=== PATIENT | male | born 1960 | race Caucasian/White ===

== ENCOUNTER 2018-02-06 08:25 | Inpatient (IN) | payer OTHER, SELFPAY ==
[2018-01-29 13:49] VITALS: BMI 32.8
[2018-02-06] VITALS (16 sets, daily range): BP systolic 109–149; BP diastolic 62–107; PULSE 65–82; RESP 9–20; TEMP 36.1–36.7; O2SAT 94–99; BMI 32.8
--- NOTE | 2018-02-06 06:00 | DI.RAD.S_ITS ---
PROCEDURE: XR KNEE RT 1TO2V INDICATIONS: TOTAL RIGHT KNEE TECHNIQUE: 2 views of the knee acquired. COMPARISON: [facility] SAMANTHA Mcclain, XR BONE LENGTH SCANOGRAM, 12/07/2017, 14:44. [facility] SAMANTHA Moran, KNEE SERIES RT, 03/16/2015, 13:53. FINDINGS: Bones: Patient is status post knee joint arthroplasty. Hardware components are in expected positions. Visualized bony structures are intact. Soft tissues: Overlying postoperative changes are noted. IMPRESSION: 1. Expected postsurgical changes status post right knee arthroplasty. Dictated by: Jj Avila M.D. on 02/06/2018 at 13:52 Approved by: Jj Avila M.D. on 02/06/2018 at 13:52
[2018-02-06] MEDS: LACTATED RINGERS 1,000 ML 42 ML IV ×2 (08:45→11:08)
[2018-02-06] MEDS: VANCOMYCIN 1,000 MG/200 ML FROZ.PIGGY 200 MG IV (08:48)
[2018-02-06] MEDS: CELECOXIB 200 MG CAPSULE PO (08:55)
[2018-02-06] MEDS: PREGABALIN 75 MG CAPSULE PO (08:55)
[2018-02-06] MEDS: ACETAMINOPHEN 325 MG TABLET 975 MG PO ×2 (08:55→18:52)
--- NOTE | 2018-02-06 09:14 | PM.PREOP ---
Pre-operative Note Interval Note Pre-op Check: Yes History & Physical Reviewed by Physician and Yes Exam Performed Changes: No
--- NOTE | 2018-02-06 09:14 | PM.OP.1 ---
Operative Date/Time/Diagnoses Date of procedure: 02/06/18 Time of procedure: 09:32 Pre-op diagnosis: right total knee arthroplasty Post-op diagnosis: same Procedure & Clinicians Procedure: right total knee arthroplasty Same procedure as scheduled: Yes Indications: The patient has had progressively worsening right knee pain with radiographic changes consistent with arthritis. Non-operative management has failed and the patient has requested total knee replacement. The risks, benefits and alternatives to surgery were discussed with the patient prior to proceeding. Risks discussed included, but were not limited to, failure to relieve pain, stiffness, infection, nerve damage, deep venous thrombosis, pulmonary embolism, stroke, coma, heart attack, permanent paralysis and , as well as the potential need for eventual revision of the prosthetic. Surgeon: Maggie Guajardo Agriculture Teacher: Deepika Grigsby Click Yes if Unassisted: No Anesthesia Type: Spinal and Peripheral nerve block Operative Notes Findings: severe right knee osteoarthritis with multiple loose bodies with marked valgus deformity, adequate balance Closure Type: primary Specimen(s): none sent Implants & Drains: Guajardo and Nephew Dain BCS2 7 femur, tibia 5, polyethylene 10, 38 oval patella Applied: drain(s) and implant(s) Estimated Blood Loss (mL): 250 Blood products transfused: none Tourniquet time (min): 82 Procedure in detail: The patient was seen in the pre-operative area, where the patient identified the right knee as the operative site and this was marked with my initials. The patient received pre-operative antibiotics, and was taken to the operating room and placed on the operative table in the supine position. After satisfactory anesthesia, a attendant sales out was performed. The right leg was encircled with a tourniquet about the proximal thigh, and the leg was prepared from the toes to the tourniquet with ChloroPrep in the usual fashion and draped through sterile drapes. The leg was elevated and exsanguinated with Eschmark bandage and the tourniquet inflated to [250] mmHg pressure. The knee was approached through an approximately 18 cm incision centered over the patella and carried into the knee through a medial parapatellar arthrotomy. A portion of the medial and lateral meniscus was resected. Soft tissue was carefully mobilized around the patella the patella was measured with a caliper. Bone was resected from the patella and the patellar height was reconstituted with up an appropriate sized patellar component. A cover was then placed on the patella. A small amount of additional medial and lateral meniscus was resected. The visionare guide fit well to the distal femur. It looked like an appropriate distal femoral cut and the cut was made without difficulty. The rotation was assessed and the appropriate size femoral guide was placed on the distal femur and finishing cuts were made. There was no evidence of notching. The anterior, posterior and chamfer cuts were then made. The posterior osteophytes and soft tissues were then removed. The posterior capsule was injected with part of a mixture of 60 ml 0.25% Marcaine mixed with 20 ml Exparel for post operative pain control. The remainder of this mixture was injected into the capsule and subcutaneous tissues during cement curing. The tibia was prepared and the visionaire guide fit well to the distal tibia. The rotation was assessed. The patient was placed in extension residual medial and lateral meniscus as well as any residual bone was carefully resected. [No] additional tibia was resected. Hemostasis was achieved especially posteriorly. Additional local was injected into the posterior capsule. The extension gap was assessed and additional releases for gap balancing were performed as necessary. It was checked with the gap doubler operator. The femoral component was trial was placed and the notch was finished. Trial tibial and femoral components were then placed and the knee placed through a range of motion. Range of motion was [0-130], with good stability throughout the range. The trials were then removed, and the tibia was finished. The bone was prepared with pulsatile lavage, and dried with a sponge. Cement was applied and the final prosthetics placed. Excess cement was removed during and after cement curing. A brief Betadine soak was performed. After confirming there was no extruded cement posteriorly, the final tibial insert was placed. The knee was copiously irrigated and the tourniquet deflated. Hemostasis was obtained with the hemovac. A drain was placed and brought out superolaterally. The capsule was closed with interrupted # 1 polyester suture. The subcutaneous layer was closed with barbed sutures, and the skin with a running 3-0 V-Lock suture and Surgical glue. An Aquacel Ag dressing was applied and the patient was taken to recovery having tolerated the procedure well. Complications: none Condition: stable Disposition: same day surgery Plan for aftercare: The patient will be maintained on a standard total knee replacement protocol with weight bearing as tolerated. The patient will receive aspirin and sequential compression devices for DVT prophylaxis. 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 The patient will be discharged home when safe for the home environment.
--- NOTE | 2018-02-06 09:17 | P.OP_ITS ---
Operative Date/Time/Diagnoses Date of procedure: 02/06/18 Time of procedure: 09:32 Pre-op diagnosis: right total knee arthroplasty Post-op diagnosis: same Procedure & Clinicians Procedure: right total knee arthroplasty Same procedure as scheduled: Yes Indications: The patient has had progressively worsening right knee pain with radiographic changes consistent with arthritis. Non-operative management has failed and the patient has requested total knee replacement. The risks, benefits and alternatives to surgery were discussed with the patient prior to proceeding. Risks discussed included, but were not limited to, failure to relieve pain, stiffness, infection, nerve damage, deep venous thrombosis, pulmonary embolism, stroke, coma, heart attack, permanent paralysis and , as well as the potential need for eventual revision of the prosthetic. Surgeon: Maggie Guajardo Inspector Barrel: Deepika Grigsby Click Yes if Unassisted: No Anesthesia Type: Spinal and Peripheral nerve block Operative Notes Findings: severe right knee osteoarthritis with multiple loose bodies with marked valgus deformity, adequate balance Closure Type: primary Specimen(s): none sent Implants & Drains: Guajardo and Nephew Dain BCS2 7 femur, tibia 5, polyethylene 10, 38 oval patella Applied: drain(s) and implant(s) Estimated Blood Loss (mL): 250 Blood products transfused: none Tourniquet time (min): 82 Procedure in detail: The patient was seen in the pre-operative area, where the patient identified the right knee as the operative site and this was marked with my initials. The patient received pre-operative antibiotics, and was taken to the operating room and placed on the operative table in the supine position. After satisfactory anesthesia, a vinyl cutter out was performed. The right leg was encircled with a tourniquet about the proximal thigh, and the leg was prepared from the toes to the tourniquet with ChloroPrep in the usual fashion and draped through sterile drapes. The leg was elevated and exsanguinated with Eschmark bandage and the tourniquet inflated to [250] mmHg pressure. The knee was approached through an approximately 18 cm incision centered over the patella and carried into the knee through a medial parapatellar arthrotomy. A portion of the medial and lateral meniscus was resected. Soft tissue was carefully mobilized around the patella the patella was measured with a caliper. Bone was resected from the patella and the patellar height was reconstituted with up an appropriate sized patellar component. A cover was then placed on the patella. A small amount of additional medial and lateral meniscus was resected. The visionare guide fit well to the distal femur. It looked like an appropriate distal femoral cut and the cut was made without difficulty. The rotation was assessed and the appropriate size femoral guide was placed on the distal femur and finishing cuts were made. There was no evidence of notching. The anterior, posterior and chamfer cuts were then made. The posterior osteophytes and soft tissues were then removed. The posterior capsule was injected with part of a mixture of 60 ml 0.25% Marcaine mixed with 20 ml Exparel for post operative pain control. The remainder of this mixture was injected into the capsule and subcutaneous tissues during cement curing. The tibia was prepared and the visionaire guide fit well to the distal tibia. The rotation was assessed. The patient was placed in extension residual medial and lateral meniscus as well as any residual bone was carefully resected. [No] additional tibia was resected. Hemostasis was achieved especially posteriorly. Additional local was injected into the posterior capsule. The extension gap was assessed and additional releases for gap balancing were performed as necessary. It was checked with the gap job coaching. The femoral component was trial was placed and the notch was finished. Trial tibial and femoral components were then placed and the knee placed through a range of motion. Range of motion was [ 0-130], with good stability throughout the range. The trials were then removed, and the tibia was finished. The bone was prepared with pulsatile lavage, and dried with a sponge. Cement was applied and the final prosthetics placed. Excess cement was removed during and after cement curing. A brief Betadine soak was performed. After confirming there was no extruded cement posteriorly, the final tibial insert was placed. The knee was copiously irrigated and the tourniquet deflated. Hemostasis was obtained with the hemovac. A drain was placed and brought out superolaterally. The capsule was closed with interrupted # 1 polyester suture. The subcutaneous layer was closed with barbed sutures, and the skin with a running 3-0 V-Lock suture and Surgical glue. An Aquacel Ag dressing was applied and the patient was taken to recovery having tolerated the procedure well. Complications: none Condition: stable Disposition: same day surgery Plan for aftercare: The patient will be maintained on a standard total knee replacement protocol with weight bearing as tolerated. The patient will receive aspirin and sequential compression devices for DVT prophylaxis. he will start Eliquis in the postoperative period as per his chief lifestyle officer's recommendations but should wait at least 24 hours. The patient will be discharged home when safe for the home environment.
[2018-02-06] MEDS: INSULIN REGULAR 100 UNIT/ML 3 ML VIAL 6 UNIT SUBCUT (09:24)
[2018-02-06] MEDS: fentaNYL 100 MCG/2 ML INJ 50 MCG IV (09:25)
[2018-02-06] MEDS: MIDAZOLAM 2 MG/2 ML VIAL IV (09:27)
--- NOTE | 2018-02-06 09:39 | SUR.PREOP ---
Block start time [926] . Monitoring initiated and maintained throughout procedure. Oxygen and medications given per anesthesiologist instructions. Patient remained stable throughout procedure, no adverse reactions noted. Block end time [34].
[2018-02-06] MEDS: CEFAZOLIN 2 GM/100 ML FROZ.PIGGY IV ×2 (09:43→17:22)
--- NOTE | 2018-02-06 10:20 | SUR.OPER ---
Supine on padded OR bed. Pillow under head, arms secured on padded armboards <90 degree abduction. Safety belt across torso. Non-operative leg secured with tape over blanket over lower leg. Operative leg secured in DeMayo/Stefan positioner. Foam padded brace at thigh of operative leg.
[2018-02-06] MEDS: BUPIVACAINE 0.25% W/ EPI VIAL 50 ML INJ (10:31)
[2018-02-06] MEDS: BUPIVACAINE LIPOSOME 266 MG/20 ML VIAL INJ (10:31)
[2018-02-06] MEDS: POVIDONE-IODINE 15 ML, SODIUM CHLORIDE 0.9% 250 ML TOP (10:33)
[2018-02-06] MEDS: TRANEXAMIC ACID 1,000 MG VIAL 2000 MG INJ (11:46)
--- NOTE | 2018-02-06 12:40 | SUR.PHASEI ---
pt has hx of afib. Anesthesia aware of pt cardiac rhythm. pt asymptomatic at this time.
--- NOTE | 2018-02-06 12:50 | SUR.PHASEI ---
REPORT CALLED TO EMERSON SHAW ON ACUTE CARE FLOOR. PT IN STABLE CONDITION, VSS. PT LAYING IN BED AND TALKING TO RN. DENIES ANY PAIN/DISCOMFORT OR NAUSEA.
--- NOTE | 2018-02-06 13:12 | SUR.PHASEI ---
TRANSFERED CARE OF PT TO ACUTE CARE FLOOR. PT ALERT AND TALKING TO RN DURING TRANSPORT. BEDSIDE REPORT GIVEN TO EMERSON MICHEL UPON ARRIVAL TO ROOM.
[2018-02-06] MEDS: ONDANSETRON 4 MG/2 ML INJ IV (13:49)
[2018-02-06] MEDS: LACTATED RINGERS 1,000 ML 125 ML IV ×2 (13:49→23:25)
--- NOTE | 2018-02-06 13:55 | PC.NURSE ---
Addendum entered by Rubia Zaldivar R.N. 02/06/18 14:30: pt reports that his nausea has improved and that he has had nausea post op with surgery before. hemo vac unclamped at this time. call light within reach. Original Note: Day SHift Pt arrive to floor from pacu at 1315, c/o feeling nauseated medicated with IV zofran, fluids infusing per order. Pt +CMS able to wiggle toes and feel touch. Lung sounds are clear, heart rate irregular has hx of afib. hemo is clamped at this time. calf SCD's on. oriented to room and call light. family at bedside.
[2018-02-06] MEDS: IBUPROFEN 600 MG TABLET PO (16:03)
[2018-02-06] MEDS: DOCUSATE 100 MG CAPSULE PO (16:04)
--- NOTE | 2018-02-06 16:19 | PT.IPTN ---
Current Diagnoses Unilateral primary osteoarthritis, right knee (02/06/18) Surgery Performed Operation Date: 02/06/18 10:00 Actual Procedures p Total Knee Arthroplasty(Right) - aMggie Guajardo MD Physical Therapy Treatment Note M3 PT-IP Subjective Start: 02/06/18 16:17 Freq: NEEDED Status: Active Protocol: Document 02/06/18 16:17 AB (Rec: 02/06/18 16:19 AB [id number]) Subjective Physical Therapy Visit Type Type Patient Refusal Notes checked on pt for PT eval but pt refused PT. stated that he has 7/10 abdominal pain and does not want to move and get up until they found out what's going on with his abdominal pain. talked to the nurse and stated that they will do a bladder scan. educated pt regarding getting up and possibly use the toilet but pt refused. will f/u.
--- NOTE | 2018-02-06 16:24 | PT.IIE ---
Current Diagnoses Unilateral primary osteoarthritis, right knee (02/06/18) Surgery Performed Operation Date: 02/06/18 10:00 Actual Procedures p Total Knee Arthroplasty(Right) - Maggie Guajardo MD Surgical History (Last Updated 01/29/18 @ 14:46 by Roberta Carson, RN) Hx of arthroscopy of right knee (Acute) Medical History (Last Updated 01/29/18 @ 14:46 by Roberta Carson, RN) Athletes foot (Acute) Diabetes (Acute) Dyslipidemia (Acute) HTN (hypertension) (Acute) History of jock itch (Acute) Hypothyroid (Acute) Lower back pain (Acute) Nail fungus (Acute) Paroxysmal atrial fibrillation (Acute ~10/2017) Physical Therapy Inpatient Evaluation/Re-Eval M1 PT/OT-IP Prior Functional Status Start: 02/06/18 16:17 Freq: NEEDED Status: Active Protocol: Document 02/06/18 16:24 AB (Rec: 02/06/18 17:17 AB [id number]) Medical Review Prior Functional Status Medical History Reviewed Yes Communication able to make needs known Mobility and Gait spouse stated that pt is independent with all mobilities and ambulation without AD Social History Household Members spouse children Living Arrangements House Number of Floors (Floors) Two Floors Number of Stairs To Enter/Railing? 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 PT-IP Current Condition Start: 02/06/18 16:17 Freq: NEEDED Status: Active Protocol: Document 02/06/18 16:24 AB (Rec: 02/06/18 17:17 AB [id number]) Physical Therapy Current Condition Current Condition Evaluation Date 02/06/18 Treatment Diagnosis s/p R TKA; difficulty in walking Onset Date 02/06/18 Weight Bearing Status Weight Bearing Status Weight Bear as Tolerated M3 PT-IP Subjective Start: 02/06/18 16:17 Freq: NEEDED Status: Active Protocol: Document 02/06/18 16:24 AB (Rec: 12/11/18 17:17 AB [id number]) Subjective Physical Therapy Visit Type Type Initial Evaluation Visit Start Time 16:24 Visit Stop Time 17:05 Total Visit Minutes 41 Number of FUNCTIONAL TESTER Visits 0 Physical Therapy Visit Comments Patient Comments pt initially refused PT but nurse informed PT after ~ 1-2 hours that pt wants to try to use the toilet and agreed to get up/ Therapy Pain Assessment Pain When Pain Assessed At Rest Pain Present Pain Present Pain Reported Location Lower Abdomen Intensity 8 Scale Used Numeric (1 - 10) Right Knee Intensity 6 Scale Used Numeric (1 - 10) Pain Management Techniques Apply Cold Timing of Activity with Medications M4 PT-IP Mobility and Gait Start: 02/06/18 16:17 Freq: NEEDED Status: Active Protocol: Document 02/06/18 16:24 AB (Rec: 02/06/18 17:17 AB [id number]) PT-Bed Mobility Assessment Supine to Sit Supine to Sit Standby Assistance Sit to Supine Sit to Supine Standby Assistance Scooting Scooting to Edge of Bed Standby Assistance PT-Transfer Assessment Sit to and From Stand Sit to and from Stand Contact Guard Assistance Equipment Transfer Assistive Device Gait Belt Front Wheeled Walker Orthotic/Prosthetic Devices or Brace: No Transfers Transfer Destination Toilet Transfer Technique Pt ambulated to the toilet Transfer Ability Level of Assist Minimal Assistance 1 Person Assistance Use of Upper Extremities Gait Assessment Gait Gait Assistance Required: Minimum Assistance Distance (Feet) 20 Able to Maintain Weight Bearing Status Yes During Gait Assistive Devices Assistive Device Gait Belt Front Wheeled Walker Orthotic/Prosthetic Devices or Brace: No Gait Deviations General Gait Pattern Antalgic Decreased Stride Length Decreased Feet Clearance Factors Limiting Gait Function Factors Limiting Gait Function Decreased Activity Tolerance Decreased Strength Pain Poor Balance Comments Gait Comments pt ambulated to [facility] using FWW min A and cues with (+) LOB requiring min A for recovery. pt completed sit <> stand from the toilet x 2 requiring CGA and cues. pt ambulated towards the sink using FWW ~ 12 ft CGA to min A and was able to maintain standing using FWW for support CGA. pt ambulated back towards the bed using FWW ~ 15 ft CGA. PT-Balance Assessment Sitting Balance and Reactions Static Sitting Balance Ability Good Dynamic Sitting Balance Ability Good Standing Balance and Reactions Static Standing Balance Ability Fair Dynamic Standing Balance Ability Fair Device Used FWW M5 PT-IP Objective Assessments Start: 02/06/18 16:17 Freq: NEEDED Status: Active Protocol: Document 02/06/18 16:24 AB (Rec: 02/06/18 17:17 AB [id number]) Orientation Orientation/Cognition Level of Alertness Alert Orientation Name Age Birthday Month Date Year Day of Week Place Situation Gross Range of Motion Lower Extremity ROM Assessment Within Functional Limits Impairments R knee flexion ~ 90 deg Strength Lower Extremity Strength Assessment Right Impaired Knee 4-/5 Sensation Assessment Sensation Gross Sensation WNL Comments Sensation Comments c/o buttocks numbness M6 PT-IP Treatment Start: 02/06/18 16:17 Freq: NEEDED Status: Active Protocol: Document 02/06/18 16:24 AB (Rec: 02/06/18 17:17 AB [id number]) Physical Therapy Treatment Education Education Provided Precautions Weight Bearing Status Post-Op Packet Safety M7 PT-IP Assessment and Plan Start: 02/06/18 16:17 Freq: NEEDED Status: Active Protocol: Document 02/06/18 16:24 AB (Rec: 02/06/18 17:17 AB [id number]) PT Summary Assessment and Plan Potential Rehabilitation Potential Good Status of Condition at Evaluation Stable Summary Impairments Pain ROM Strength Balance Coordination Sensation Tone Cognition Bed Mobility Transfers Gait Activity Tolerance Assessment Summary pt requiring CGA to min A with ambulation using FWW but unable to tolerate much due to c/o abdominal pain of 8/. Pt plans to go home with spouse to assist him. pt wants to go home tomorrow morning. will conduct caregiver training if appropriate and will complete stair training and long distance ambulation prior to d /c. Goals Bed Mobility Goal Standby Assistance Transfer Goal Standby Assistance Front Wheeled Walker Gait Goal Standby Assistance Front Wheel Walker Gait Distance 200 Other Goals up/down 13 steps with L rail ascending up/down 2 steps with R rail ascending Days to Meet Goals 3 Frequency of Treatment Frequency Of Treatment Twice a Day Treatment Plan Physical Therapy Treatment Plan Bed Mobility Training Transfer Training Gait Training Therapeutic Exercise Balance Retraining Post Op Education Discharge Planning Hot or Cold Pack Neuromuscular Re-ed Coordination Retraining Manual Therapy Other Recommendations and Next Treatment stair climbing, caregiver Focus training. Recommendations To Nursing Amount of Assist Needed 1 Person Assist Discharge Recommendations PT Discharge Recommendations Home with Assistance Outpatient PT
[2018-02-06] MEDS: ASPIRIN EC 81 MG TABLET PO (20:42)
[2018-02-06] MEDS: METFORMIN HCL 500 MG TABLET 1000 MG PO (20:42)
[2018-02-06] MEDS: LISINOPRIL 20 MG TABLET 40 MG PO (20:43)
[2018-02-06] MEDS: CARVEDILOL 25 MG TABLET PO (20:43)
[2018-02-06] MEDS: POTASSIUM CHLORIDE 20 MEQ TAB PO (20:44)
[2018-02-06] MEDS: AMLODIPINE 5 MG TABLET 10 MG PO (20:44)
--- NOTE | 2018-02-06 21:34 | PC.NURSE ---
Monica shift note: Awake and alert, up out of bed to BR. Pain control with SHAHIDA tylenol, adequately. BG 152 mg/dl at 1625. Non insulin dependent. Metformin only. Family at bedside providing supportive care. Call light within reach .
[2018-02-07] MEDS: IBUPROFEN 600 MG TABLET PO ×2 (00:36→06:31)
[2018-02-07] MEDS: CEFAZOLIN 2 GM/100 ML FROZ.PIGGY IV (02:20)
[2018-02-07 05:40] VITALS: BP 164/94; PULSE 62; RESP 18; TEMP 36.7; O2SAT 98
[2018-02-07] MEDS: OXYCODONE IR 5 MG TABLET PO ×3 (06:29→14:16)
[2018-02-07 06:52] LABS: Hematocrit 35.6 % (41-53)
[2018-02-07 07:59] VITALS: BP 158/81; PULSE 67; RESP 16; TEMP 37.1; O2SAT 95
[2018-02-07] MEDS: DOCUSATE 100 MG CAPSULE PO (08:30)
[2018-02-07] MEDS: THYROID, PORK 60 MG TABLET 120 MG PO (08:31)
[2018-02-07] MEDS: ACETAMINOPHEN 325 MG TABLET 975 MG PO ×2 (08:31→14:16)
[2018-02-07] MEDS: POTASSIUM CHLORIDE 20 MEQ TAB PO (08:31)
[2018-02-07] MEDS: CARVEDILOL 25 MG TABLET PO (08:31)
[2018-02-07] MEDS: ASPIRIN EC 81 MG TABLET PO (08:31)
[2018-02-07] MEDS: hydroCHLOROthiazide 25 MG TABLET PO (08:31)
[2018-02-07] MEDS: METFORMIN HCL 500 MG TABLET 1000 MG PO (08:31)
--- NOTE | 2018-02-07 10:16 | PT.IPTN ---
Current Diagnoses Unilateral primary osteoarthritis, right knee (02/06/18) Surgery Performed Operation Date: 02/06/18 10:00 Actual Procedures p Total Knee Arthroplasty(Right) - Maggie Guajardo MD Physical Therapy Treatment Note M2 PT-IP Current Condition Start: 02/06/18 16:17 Freq: NEEDED Status: Active Protocol: Document 02/06/18 16:24 AB (Rec: 02/06/18 17:17 AB [id number]) Physical Therapy Current Condition Current Condition Evaluation Date 02/06/18 Treatment Diagnosis s/p R TKA; difficulty in walking Onset Date 02/06/18 Weight Bearing Status Weight Bearing Status Weight Bear as Tolerated M3 PT-IP Subjective Start: 02/06/18 16:17 Freq: NEEDED Status: Active Protocol: Document 02/07/18 10:03 SA (Rec: 02/07/18 10:16 SA [id number]) Subjective Physical Therapy Visit Type Type Treatment Note Visit Start Time 08:27 Visit Stop Time 08:57 Total Visit Minutes 30 Notes Pt supine in bed and agreeable to PT, had morning meds at beginning of session. 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 Therapy Pain Assessment Pain When Pain Assessed During Mobility Pain Present Pain Present Pain Reported Location Lower Abdomen Intensity 4 Scale Used Numeric (1 - 10) M4 PT-IP Mobility and Gait Start: 02/06/18 16:17 Freq: NEEDED Status: Active Protocol: Document 02/07/18 10:03 SA (Rec: 02/07/18 10:16 SA [id number]) PT-Bed Mobility Assessment Rolling Type of Rolling Roll to Left Level of Assist Standby Assistance Supine to Sit Supine to Sit Standby Assistance Sit to Supine Sit to Supine Standby Assistance Scooting Scooting to Edge of Bed Standby Assistance Scooting Up and Down in Bed Standby Assistance PT-Transfer Assessment Sit to and From Stand Sit to and from Stand Contact Guard Assistance Equipment Transfer Assistive Device Gait Belt Front Wheeled Walker Orthotic/Prosthetic Devices or Brace: No Transfers Transfer Destination Chair Transfer Technique Stand Step Pivot Transfer Ability Level of Assist Contact Guard Assistance 1 Person Assistance Use of Upper Extremities Comments Mobility Comments Pt uses FWW safely, cues for increasing WBing through RLE, decerasing levels of assist for mobility tasks. Gait Assessment Gait Gait Assistance Required: Contact Guard Assist Distance (Feet) 150 Able to Maintain Weight Bearing Status Yes During Gait Assistive Devices Assistive Device Gait Belt Front Wheeled Walker Orthotic/Prosthetic Devices or Brace: No Gait Deviations General Gait Pattern Antalgic Decreased Stride Length Decreased Feet Clearance Factors Limiting Gait Function Factors Limiting Gait Function Decreased Activity Tolerance Decreased Strength Pain Poor Balance Comments Gait Comments Pt able to ambulate in hallway and to/from stairs with CGA and cues for step length and decreasing WBing through UEs. No LOB noted, no c/o dizziness . Stair Climbing Assessment Evaluation Level of Assist On Stairs Contact Guard Assistance Devices Stair Climbing Assistive Devices Right Railing Technique/Endurance Stair Climbing Direction Ascend and Descend Stair Climbing Technique Step to Step Number of Steps Climbed 3 Query Text: Stair Climbing Set # Repetitions (reps) 2 Comments Stair Climbing Comments Mod cues for technique and pt able to demonstrate safety with stair climb, relies heavily on UEs. M5 PT-IP Objective Assessments Start: 02/06/18 16:17 Freq: NEEDED Status: Active Protocol: Document 02/06/18 16:24 AB (Rec: 02/06/18 17:17 AB [id number]) Orientation Orientation/Cognition Level of Alertness Alert Orientation Name Age Birthday Month Date Year Day of Week Place Situation Gross Range of Motion Lower Extremity ROM Assessment Within Functional Limits Impairments R knee flexion ~ 90 deg Strength Lower Extremity Strength Assessment Right Impaired Knee 4-/5 Sensation Assessment Sensation Gross Sensation WNL Comments Sensation Comments c/o buttocks numbness M6 PT-IP Treatment Start: 02/06/18 16:17 Freq: NEEDED Status: Active Protocol: Document 02/07/18 10:03 SA (Rec: 02/07/18 10:16 [id number]) Physical Therapy Treatment Exercises Exercises Ankle Pumps Quad Sets Heel Slides Seated Knee Flexion/Extension Education Education Provided Precautions Weight Bearing Status Post-Op Packet Safety M7 PT-IP Assessment and Plan Start: 02/06/18 16:17 Freq: NEEDED Status: Active Protocol: Document 02/07/18 10:03 SA (Rec: 02/07/18 10:16 SA [id number]) PT Summary Assessment and Plan Potential Rehabilitation Potential Good Status of Condition at Evaluation Stable Summary Assessment Summary Pt with decreasing levels of assist and improving gait quality and distance, able to navigate 6 stairs with CGA. Treatment Plan Other Recommendations and Next Treatment Pt to d/c home today. Focus Recommendations To Nursing Amount of Assist Needed 1 Person Assist Discharge Recommendations PT Discharge Recommendations Home with Assistance Outpatient PT
--- NOTE | 2018-02-07 10:19 | PM.DS.1 ---
History of Present Illness Date Patient Seen: 02/07/18 Time Patient Seen: 10:19 Chief complaint: total knee arthroplasty right [id number] Narrative: Hospital day 2, postop day 1 following right total knee arthroplasty by Dr. Guajardo. He has remained stable orthopedically. Vital signs stable. Postop H&H today 13.0/35.6. He has been getting oxycodone for pain. He did have physical therapy who felt he was stable for home. Patient does have atrial fibrillation. He was given prescription for Eliquis by Dr. Irvin his funeral home general manager but has not taken it yet. There was a note on Dr. Guajardo is operative report about starting Eliquis 24 hr after surgery. Patient states that he talk with Dr. Guajardo last night to said he could wait on that. Patient is wanting to talk to the funeral home general manager more before starting the Eliquis. He has been taking aspirin 325 mg daily. He is scheduled to go to [facility] in [place]. Patient is a [facility] patient. He does have postoperative pain medication at home. Discharge Providers Date of admission: 02/06/18 08:25 Consults: 01/29/18 15:06 Consult to Anesthesiology Routine Comment: Consulting Provider: Anesthesiologist Reason for consultation: Surgeon requested re: Cardiac Consult to Pastoral Services Routine Comment: RT TKA 02/0602/06/18 06:00 Consult to Anesthesiology Routine Comment: Consulting Provider: Anesthesiologist Reason for consultation: Regional block for post operative pain control 02/06/18 13:21 Consult to Discharge Planning Routine Comment: Consult to Physical Therapy Evaluate & Treat Comment: Physician Instructions: postop TKA protocol Consult to Respiratory Therapy Evaluate & Treat Comment: Physician Instructions: Evaluate and treat 02/06/18 13:41 Consult to Dietitian, Adult Routine Comment: Reason For Exam: weight loss from metformin Consult to Pastoral Services Routine Comment: as needed Discharge provider: Willie Zhu PA-C Discharge Date: 02/07/18 Summary Discharge Diagnosis: Status post right total knee arthroplasty Hospital Course: Patient brought to hospital on 02/06/2018 for above-noted surgery. Remained stable postoperatively. Progressed with therapy. Hemovac was gradually decreasing. Plan discharge home on postop day 1 after cleared by physical therapy. Status at Discharge Cognitive/behavioral status at discharge: Alert, oriented no acute distress Functional status at discharge: uses cane/walker Overall status at discharge: patient is progressing back to baseline Time Spent with Patient Less than 30 minutes Exam Vital Signs (past 8 hours): - 02/07/18 05:40 02/07/18 07:59 Temperature 98.0 F 98.7 F Pulse Rate 62 67 Respiratory Rate 18 16 Blood Pressure 164/94 H 158/81 H Pulse Oximetry 98 95 Oxygen Delivery Method Room Air Oxygen Flow Rate 0 Narrative Exam Narrative: Alert, oriented no acute distress resting in bed. Legs. Torres wrap an Aquacel dressing to right knee is dry without drainage or inflammation. Hemovac in place with decreased drainage. Mild swelling of the knee. No calf pain or swelling. Pulses symmetrical. Objective Labs Result Diagrams: 02/07/18 06:22 Labs: Laboratory Results - last 24 hr 02/07/18 06:22 Hgb 13.0 L Hct 35.6 L Discharge Plan Discharge Plan Patient Disposition: Home Discharge comment: Discharge to home after cleared by physical therapy. DC Hemovac if drainage below 50 mL. Discharge Med Rec/Prescriptions Prescriptions: New acetaminophen 325 mg Tablet 975 mg PO TID Qty: 30 RF: 0 Continue carvedilol 25 mg Tablet 25 mg PO BID RF: 0 aspirin 325 mg Tablet 325 mg PO DAILY RF: 0 amlodipine 10 mg Tablet 10 mg PO BEDTIME RF: 0 metformin 1,000 mg Tablet 1,000 mg PO BID RF: 0 hydrochlorothiazide 25 mg Tablet 25 mg PO DAILY RF: 0 lisinopril 40 mg Tablet 40 mg PO BEDTIME RF: 0 thyroid (pork) [[place] Thyroid] 120 mg Tablet 120 mg PO DAILY RF: 0 potassium chloride 20 mEq Tablet Extended Release 20 meq PO BID RF: 0 Provider Discharge Instructions Diet: Diet as Tolerated Activity: Ambulation as tolerated. Continue with the right knee range of motion as tolerated. Cold/Heat Therapy: Cold pack to right knee as needed. Other treatments: Patient will check with funeral home general manager regarding starting Eliquis. Skin/Wound/Dressing Care Report to your healthcare provider any signs of infection, such as:: chills, fever, night sweats, increased pain, unusual drainage and unusual redness Dressing: Keep Aquacel dressing in place until postop visit. Visit Report/Discharge Packet Instructions: DI for Knee Replacement Discharge Data Attending Provider: Deepika Grigsby Admit Date/Time: 02/06/18 08:25
--- NOTE | 2018-02-07 10:25 | P.DS_ITS ---
History of Present Illness Date Patient Seen: 02/07/18 Time Patient Seen: 10:19 Chief complaint: total knee arthroplasty right [id number] Narrative: Hospital day 2, postop day 1 following right total knee arthroplasty by Dr. Guajardo. He has remained stable orthopedically. Vital signs stable. Postop H&H today 13.0/35.6. He has been getting oxycodone for pain. He did have physical therapy who felt he was stable for home. Patient does have atrial fibrillation. He was given prescription for Eliquis by Dr. Irvin his athletic instructor but has not taken it yet. There was a note on Dr. Guajardo is operative report about starting Eliquis 24 hr after surgery. Patient states that he talk with Dr. Guajardo last night to said he could wait on that. Patient is wanting to talk to the athletic instructor more before starting the Eliquis. He has been taking aspirin 325 mg daily. He is scheduled to go to [facility] in [place]. Patient is a [facility] patient. He does have postoperative pain medication at home. Discharge Providers Date of admission: 02/06/18 08:25 Consults: 01/29/18 15:06 Consult to Anesthesiology Routine Comment: Consulting Provider: Anesthesiologist Reason for consultation: Surgeon requested re: Cardiac Consult to Pastoral Services Routine Comment: RT TKA 02/0602/06/18 06:00 Consult to Anesthesiology Routine Comment: Consulting Provider: Anesthesiologist Reason for consultation: Regional block for post operative pain control 02/06/18 13:21 Consult to Discharge Planning Routine Comment: Consult to Physical Therapy Evaluate & Treat Comment: Physician Instructions: postop TKA protocol Consult to Respiratory Therapy Evaluate & Treat Comment: Physician Instructions: Evaluate and treat 02/06/18 13:41 Consult to Dietitian, Adult Routine Comment: Reason For Exam: weight loss from metformin Consult to Pastoral Services Routine Comment: as needed Discharge provider: Willie Zhu PA-C Discharge Date: 02/07/18 Summary Discharge Diagnosis: Status post right total knee arthroplasty Hospital Course: Patient brought to hospital on 02/06/2018 for above-noted surgery. Remained stable postoperatively. Progressed with therapy. Hemovac was gradually decreasing. Plan discharge home on postop day 1 after cleared by physical therapy. Status at Discharge Cognitive/behavioral status at discharge: Alert, oriented no acute distress Functional status at discharge: uses cane/walker Overall status at discharge: patient is progressing back to baseline Time Spent with Patient Less than 30 minutes Exam Vital Signs (past 8 hours): - 02/07/18 05:40 02/07/18 07:59 Temperature 98.0 F 98.7 F Pulse Rate 62 67 Respiratory Rate 18 16 Blood Pressure 164/94 H 158/81 H Pulse Oximetry 98 95 Oxygen Delivery Method Room Air Oxygen Flow Rate 0 Narrative Exam Narrative: Alert, oriented no acute distress resting in bed. Legs. Torres wrap an Aquacel dressing to right knee is dry without drainage or inflammation. Hemovac in place with decreased drainage. Mild swelling of the knee. No calf pain or swelling. Pulses symmetrical. Objective Labs Result Diagrams: 02/07/18 06:22 Labs: Laboratory Results - last 24 hr 02/07/18 06:22 Hgb 13.0 L Hct 35.6 L Discharge Plan Discharge Plan Patient Disposition: Home Discharge comment: Discharge to home after cleared by physical therapy. DC Hemovac if drainage below 50 mL. Discharge Med Rec/Prescriptions Prescriptions: New acetaminophen 325 mg Tablet 975 mg PO TID Qty: 30 RF: 0 Continue carvedilol 25 mg Tablet 25 mg PO BID RF: 0 aspirin 325 mg Tablet 325 mg PO DAILY RF: 0 amlodipine 10 mg Tablet 10 mg PO BEDTIME RF: 0 metformin 1,000 mg Tablet 1,000 mg PO BID RF: 0 hydrochlorothiazide 25 mg Tablet 25 mg PO DAILY RF: 0 lisinopril 40 mg Tablet 40 mg PO BEDTIME RF: 0 thyroid (pork) [Fraz[place] Thyroid] 120 mg Tablet 120 mg PO DAILY RF: 0 potassium chloride 20 mEq Tablet Extended Release 20 meq PO BID RF: 0 Provider Discharge Instructions Diet: Diet as Tolerated Activity: Ambulation as tolerated. Continue with the right knee range of motion as tolerated. Cold/Heat Therapy: Cold pack to right knee as needed. Other treatments: Patient will check with athletic instructor regarding starting Eliquis. Skin/Wound/Dressing Care Report to your healthcare provider any signs of infection, such as:: chills, fever, night sweats, increased pain, unusual drainage and unusual redness Dressing: Keep Aquacel dressing in place until postop visit. Visit Report/Discharge Packet Instructions: DI for Knee Replacement Discharge Data Attending Provider: Deepika Grigsby Admit Date/Time: 02/06/18 08:25
[2018-02-07 11:08] VITALS: BP 140/72; PULSE 67; RESP 17; TEMP 36.6; O2SAT 96
== END 2018-02-07 14:45 | disposition home or self-care (01) | DRG 470 ==
PROVIDERS: Orthopaedic Surgery; Admitting Provider Physician Assistant Medical; Visit Provider Physician Assistant
PROC: 0SRC0JZ Replacement of Right Knee Joint with Synthetic Substitute, Open Approach (ICD-10-PCS; CPT 27447; principal; 2018-02-06 10:00)
DX: M17.11 Unilateral primary osteoarthritis, right knee (principal); M23.41 Loose body in knee, right knee; I10 Essential (primary) hypertension; E11.9 Type 2 diabetes mellitus without complications; Z79.84 Long term (current) use of oral hypoglycemic drugs; I48.0 Paroxysmal atrial fibrillation; E66.9 Obesity, unspecified; Z68.32 Body mass index [BMI] 32.0-32.9, adult
CPT/HCPCS: 36415; 64450; 73560; 82962; 85014; 85018; 97116; 97161; 97530; C1776; C9290; J0690; J2250; J2405; J2704; J3010; J3370